=== PATIENT | male | born 1995 | race African-American/Black ===

== ENCOUNTER 2020-11-01 11:57 | Observation (INO) | payer SELFPAY ==
[2020-11-01] MEDS ORDERED: NORMAL SALINE 1000 ML 1,000 ML IV ONE ×3 (13:23→20:12)
--- NOTE | 2020-11-01 13:24 | ER Document Report ---
ED Medical Screen (RME) - General Stated Complaint: DIZZINESS Time Seen by Provider: 11/01/20 13:22 Notes: Patient presents complaining of generalized body cramps dizziness and blurred vision. Patient states he used methamphetamine and fentanyl for the first time 2 days ago. Patient without any chest discomfort. I have greeted and performed a rapid initial assessment of this patient. A comprehensive ED assessment and evaluation of the patient, analysis of test results and completion of the medical decision making process will be conducted by additional ED providers. - Related Data Allergies/Adverse Reactions: No Known Allergies Allergy (Verified 11/01/20 13:20) Physical Exam - Vital signs Vitals: Temp Pulse Resp BP Pulse Ox 98.2 F 81 16 118/70 100 11/01/20 12:23 11/01/20 12:23 11/01/20 12:23 11/01/20 12:23 11/01/20 12:23 - General General appearance: Appears well, Alert - Cardiovascular Rhythm: Regular Heart sounds: S1 appreciated, S2 appreciated Murmur: No Course - Vital Signs Vital signs: Temp Pulse Resp BP Pulse Ox 98.2 F 81 16 118/70 100 11/01/20 12:23 11/01/20 12:23 11/01/20 12:23 11/01/20 12:23 11/01/20 12:23
[2020-11-01 14:04] LABS: APPEARANCE,URINE CLEAR; BILIRUBIN,URINE NEGATIVE (NEGATIVE); COLOR,URINE YELLOW; GLUCOSE, URINE NEGATIVE (NEGATIVE); KETONES,URINE 20 mg/dL (NEGATIVE); LEUKOCYTE ESTERASE,URINE SMALL (NEGATIVE); NITRITE,URINE NEGATIVE (NEGATIVE); PROTEIN,URINE NEGATIVE (NEGATIVE); URINE SPECIFIC GRAVITY 1.006
[2020-11-01 14:17] LABS: URINE BARBITURATES SCREEN NEGATIVE; URINE BENZODIAZEPINES SCREEN NEGATIVE; URINE COCAINE SCREEN NEGATIVE; URINE METHADONE SCREEN NEGATIVE; URINE PHENCYCLIDINE SCREEN NEGATIVE
[2020-11-01 14:29] LABS: URINE MARIJUANA (THC) SCREEN UNCONFIRMED POSITIVE
[2020-11-01 14:36] LABS: ABSOLUTE EOSINOPHILS # (AUTO) 0.1 10^3/uL (0.0-0.6); ABSOLUTE LYMPHOCYTES (AUTO) 1.3 10^3/uL (0.5-4.7); ABSOLUTE MONOCYTES (AUTO) 0.7 10^3/uL (0.1-1.4); ABSOLUTE NEUT (AUTO) 6.8 10^3/uL (1.7-8.2); BASOPHILS % (AUTO) 0.5 % (0-2); EOSINOPHILS % (AUTO) 0.9 % (0-6); HEMATOCRIT 44.7 % (37.9-51.0); LYMPHOCYTES % (AUTO) 14.4 % (13-45); MEAN CORPUSCULAR HEMOGLOBIN 30.3 pg (27.0-33.4); MEAN CORPUSCULAR HGB CONC 33.5 g/dL (32.0-36.0); MEAN CORPUSCULAR VOLUME 90 fl (80-97); MONOCYTES % (AUTO) 7.8 % (3-13); PLATELET COUNT 189 10^3/uL (150-450); RED BLOOD COUNT 4.94 10^6/uL (4.35-5.55); RED CELL DISTRIBUTION WIDTH 12.9 % (11.5-14.0); SEGMENTED NEUTROPHILS % (AUTO) 76.4 % (42-78); TOTAL CELLS COUNTED % (AUTO) 100 %; WHITE BLOOD COUNT 8.9 10^3/uL (4.0-10.5)
--- NOTE | 2020-11-01 16:02 | ER Document Report ---
ED General - General Chief Complaint: Drug Abuse Stated Complaint: DIZZINESS Time Seen by Provider: 11/01/20 13:22 - HPI Notes: Patient is a 25-year-old male who presents to the emergency department for evaluation. He experimented with methamphetamine and fentanyl for the first time 2 days ago. He injected methamphetamine, snorted the fentanyl. He states that since then he has been feeling "weird." He is been very dizzy. He feels almost as if he is sick. He complains of pain in his anterior thighs. He denies any fevers but he states that his "temperature has felt elevated." No chills. No nausea or vomiting, although he does have a diminished appetite. Mild increase in loose bowel movements. He is still urinating. No hematuria, urinary frequency, dysuria to speak of. He denies the regular use of any other drugs. - Related Data Allergies/Adverse Reactions: No Known Allergies Allergy (Verified 11/01/20 13:20) Home Medications: None Past Medical History - General Information source: Patient - Social History Smoking Status: Current Some Day Smoker Frequency of alcohol use: None Drug Abuse: Marijuana, Methamphetamine, Prescription drugs Family History: Reviewed & Not Pertinent, Other - Chronic kidney disease - Medical History Medical History: Negative Surgical Hx: Negative Review of Systems - Review of Systems Constitutional: See HPI EENT: No symptoms reported Cardiovascular: No symptoms reported Respiratory: No symptoms reported Gastrointestinal: See HPI Genitourinary: No symptoms reported Musculoskeletal: See HPI Skin: No symptoms reported Neurological/Psychological: No symptoms reported Physical Exam - Vital signs Vitals: Temp Pulse Resp BP Pulse Ox 98.2 F 81 16 118/70 100 11/01/20 12:23 11/01/20 12:23 11/01/20 12:23 11/01/20 12:23 11/01/20 12:23 - Notes Notes: Vital signs reviewed, please refer to chart. Head is normocephalic, atraumatic. Pupils equal round, reactive to light. Neck is supple without meningismus. Heart is regular rate and rhythm. Lungs are clear to auscultation bilaterally. Abdomen is soft, nontender, normoactive bowel sounds throughout. Extremities without cyanosis, clubbing. Posterior calves are nontender. He does have some tenderness over the quadriceps muscles bilaterally. Peripheral pulses are equal. Skin is warm and dry. Patient is awake, alert, neurological exam is nonfocal. He is calm, cooperative with examiner, exhibits good hygiene. Does not appear to be reacting to any sort of internal stimuli. Course - Re-evaluation Re-evalutation: 11/01/20 16:01 Patient presents to the emergency department for evaluation. He was initially seen through triage. Laboratory investigations have been ordered. I am concerned about the possibility of rhabdomyolysis in this patient who has been abusing amphetamines. Labs show large blood in his urine without a large amount of red blood cells on microscopic examination. He does have some white blood cells there, this was sent for culture. I have ordered IV fluids. Awaiting chemistries. He is currently stable, we will continue to monitor. 11/01/20 20:08 Patient CPK is markedly elevated. His creatinine is still normal. We will continue IV fluids, awaiting medicine consultation. 11/01/20 21:47 Dr. Briones will come down and evaluate the patient. - Vital Signs Vital signs: Temp Pulse Resp BP Pulse Ox 98.2 F 60 16 136/68 H 98 11/02/20 01:54 11/02/20 01:54 11/02/20 01:54 11/02/20 01:54 11/02/20 01:54 - Laboratory Results Result Diagrams: 11/01/20 14:08 11/01/20 18:45 Laboratory Results Interpreted: 11/01/20 11/01/20 13:36 18:45 Sodium 136.1 L Glucose 73 L Total Bilirubin 2.2 H AST 816 H ALT 201 H Creatine Kinase 11610 H Urine Ketones 20 H Urine Blood LARGE H Urine Urobilinogen 2.0 H Ur Leukocyte Esterase SMALL H Critical Laboratory Results Reviewed: No Critical Results - Radiology Results Critical Radiology Results Reviewed: No Critical Results Discharge - Discharge Clinical Impression: Rhabdomyolysis Qualifiers: Encounter type: initial encounter Condition: Stable Disposition: ADMITTED OBSERVATION Admitting Provider: [facility] Unit Admitted: Medical Floor
[2020-11-01 19:33] LABS: ALBUMIN 3.9 g/dL (3.5-5.0); ALKALINE PHOSPHATASE 42 U/L (38-126); ANION GAP 7 (5-19); BILIRUBIN,TOTAL 2.2 mg/dL (0.2-1.3); BLOOD UREA NITROGEN 14 mg/dL (7-20); CALCIUM 9.1 mg/dL (8.4-10.2); CARBON DIOXIDE 29 mmol/L (22-30); CHLORIDE 100 mmol/L (98-107); GLUCOSE 73 mg/dL (75-110); POTASSIUM 3.7 mmol/L (3.6-5.0); TOTAL PROTEIN 6.9 g/dL (6.3-8.2)
[2020-11-01 20:07] LABS: ASPARTATE AMINO TRANSFERASE 816 U/L (17-59)
[2020-11-01 20:08] LABS: CREATINE KINASE 28961 U/L (55-170)
[2020-11-01] MEDS ORDERED: NORMAL SALINE 1000 ML 1,000 ML IV PRN (22:04)
[2020-11-01] MEDS ORDERED: ONDANSETRON HCL INJ/PF 4 MG/2 ML SDV IV PRN (22:04)
[2020-11-01] MEDS ORDERED: ACETAMINOPHEN 325 MG TABLET PO ONE (22:08)
[2020-11-01] MEDS ORDERED: FAMOTIDINE 20 MG TABLET PO ONE (22:45)
--- NOTE | 2020-11-01 23:14 | PDOC H&P ---
History of Present Illness Admission Date/PCP: NO LOCALMD Patient complains of: Bilateral thigh pain History of Present Illness: CARRI WHITMAN is a 25 year old male with no significant past medical history who presents to the ED reporting a 2 days duration of progressively worsening bilateral thigh pain. He describes the pain as cramping, 10/10 intensity and ag gravated by movement. Patient also states that he has been feeling drained, dehydrated and this morning before presentation he felt like he was almost going to pass out. He states that he used methamphetamine and fentanyl 2 days back before the symptoms started. The methamphetamine was injected into his right arm by his friend and he snorted fentanyl. He denies any fever, thigh or leg swelling, numbness or tingling in his extremities, chest pain, shortness of breath, palpitation, nausea, vomiting, abdominal pain, diarrhea or any change in his urinary habit. Social History Information Source: Patient Smoking Status: Current Some Day Smoker Drugs: Other - Patient reports first-time use of methamphetamine injection and fentanyl - Advance Directive Resuscitation Status: Full Code Family History Family History: Other - Chronic kidney disease Parental Family History Reviewed: Yes Children Family History Reviewed: Yes Sibling(s) Family History Reviewed.: Yes Medication/Allergy Allergies/Adverse Reactions: No Known Allergies Allergy (Verified 11/01/20 13:20) Review of Systems Constitutional: ABSENT: chills, fever(s), headache(s), weight gain, weight loss Eyes: ABSENT: visual disturbances Nose, Mouth, and Throat: ABSENT: headache(s), mouth pain, sore throat Cardiovascular: ABSENT: chest pain, dyspnea on exertion, edema, orthropnea, palpitations Respiratory: ABSENT: cough, hemoptysis Gastrointestinal: ABSENT: abdominal pain, constipation, diarrhea, hematemesis, hematochezia, nausea, vomiting Genitourinary: ABSENT: dysuria, hematuria Musculoskeletal: PRESENT: as per HPI Integumentary: ABSENT: rash, wounds Neurological: ABSENT: abnormal gait, abnormal speech, confusion, dizziness, focal weakness, syncope Psychiatric: ABSENT: anxiety, depression, homidical ideation, suicidal ideation Endocrine: ABSENT: cold intolerance, heat intolerance, polydipsia, polyuria Hematologic/Lymphatic: ABSENT: easy bleeding, easy bruising Physical Exam Vital Signs: Temp Pulse Resp BP Pulse Ox 97.8 F 66 16 126/63 H 100 11/01/20 18:46 11/01/20 18:46 11/01/20 18:46 11/01/20 18:46 11/01/20 18:46 Intake & Output 10/31/20 11/01/20 11/02/20 06:59 06:59 06:59 Intake Total 1999 Balance 1999 Additional comments: GENERAL APPEARANCE: Alert and oriented x3, in no acute distress HEENT: Normocephalic and atraumatic. Dry oral mucosa NECK: Supple. No lymphadenopathy or tenderness. No JVD CHEST: Symmetric. Nontender to palpation. LUNGS: Clear with good air entry bilaterally. No wheezing or crackles HEART: Regular rate and rhythm with normal S1 and S2. No murmurs, gallops, or rubs. ABDOMEN: Flat, soft, active bowel sounds, no direct or rebound tenderness. No organomegaly detected. EXTREMITIES: No cyanosis, clubbing, or edema. MUSCULOSKELETAL: No deformity, atrophy or swelling noted PSYCHIATRIC: Recent and remote memory is intact. Appropriate mood and affect. SKIN: Warm, dry, and well perfused. No lesions or rashes are noted. NEUROLOGIC: No focal sensory or motor deficits are noted. Results Laboratory Results: 11/01/20 14:08 11/01/20 18:45 11/01/20 11/01/20 11/01/20 13:36 14:08 14:08 WBC 8.9 RBC 4.94 Hgb 15.0 Hct 44.7 MCV 90 MCH 30.3 MCHC 33.5 RDW 12.9 Plt Count 189 Seg Neutrophils % 76.4 Sodium Cancelled Potassium Cancelled Chloride Cancelled Carbon Dioxide Cancelled Anion Gap Cancelled BUN Cancelled Creatinine Cancelled Est GFR ( Amer) Cancelled Est GFR (Non-Af Amer) Cancelled Glucose Cancelled Calcium Cancelled Magnesium Cancelled Total Bilirubin Cancelled AST Cancelled Alkaline Phosphatase Cancelled Total Protein Cancelled Albumin Cancelled Urine Color YELLOW Urine Appearance CLEAR Urine pH 6.0 Ur Specific [place] 1.006 Urine Protein NEGATIVE Urine Glucose (UA) NEGATIVE Urine Ketones 20 H Urine Blood LARGE H Urine Nitrite NEGATIVE Ur Leukocyte Esterase SMALL H Urine WBC (Auto) 24 Urine RBC (Auto) 1 11/01/20 18:45 WBC RBC Hgb Hct MCV MCH MCHC RDW Plt Count Seg Neutrophils % Sodium 136.1 L Potassium 3.7 Chloride 100 Carbon Dioxide 29 Anion Gap 7 BUN 14 Creatinine 0.82 Est GFR ( Amer) > 60 Est GFR (Non-Af Amer) Glucose 73 L Calcium 9.1 Magnesium 1.9 Total Bilirubin 2.2 H AST 816 H Alkaline Phosphatase 42 Total Protein 6.9 Albumin 3.9 Urine Color Urine Appearance Urine pH Ur Specific [place] Urine Protein Urine Glucose (UA) Urine Ketones Urine Blood Urine Nitrite Ur Leukocyte Esterase Urine WBC (Auto) Urine RBC (Auto) 11/01/20 11/01/20 14:08 18:45 Creatine Kinase Cancelled 62678 H Assessment and Plan - Diagnosis (1) Rhabdomyolysis Qualifiers: Encounter type: initial encounter Is this a current diagnosis for this admission?: Yes Plan: Patient presents with severe bilateral thigh pain after IV methamphetamine use Currently he is alert and oriented and hemodynamically stable Currently no sign of compartment syndrome CK level was elevated at 28,961 Kidney function within the normal limit Was given 2 L of normal saline bolus at the ED Continued him on normal saline at a rate of 250 mill per hour Closely monitor I&O's Will continue closely monitoring kidney function test, uric acid level and electrolytes (2) Elevated liver enzymes Is this a current diagnosis for this admission?: Yes Plan: Liver enzymes including bilirubin were elevated AST/ALT/alk phos >> 816/201/42 with a bilirubin of 2.2 Likely to be due to rhabdomyolysis Obtain hepatitis panel in the morning continue IV hydration as stated above - Time Time Spent with patient: 35 or more minutes Total Critical Time (Minutes): 40 Medications reviewed and adjusted accordingly: Yes Anticipated Discharge Disposition: Home, Self Care Anticipated Discharge Timeframe: within 72 hours - Inpatient Certification Based on my medical assessment, after consideration of the patient's comorbidities, presenting symptoms, or acuity I expect that the services needed warrant INPATIENT care.: Yes I certify that my determination is in accordance with my understanding of Medicare's requirements for reasonable and necessary INPATIENT services [42 CFR 412.3e].: Yes Medical Necessity: Need Close Monitoring Due to Risk of Patient Decompensation, Need For IV Fluids, Risk of Complication if Not Cared For in Hospital Post Hospital Care: D/C or Transfer Summary
[2020-11-02] MEDS ORDERED: OXYCODONE-ACETAMINOPHEN 5-325 MG TABLET PO ONE (02:15)
[2020-11-02 06:09] LABS: ALBUMIN 2.7 g/dL (3.5-5.0); ALKALINE PHOSPHATASE 32 U/L (38-126); ASPARTATE AMINO TRANSFERASE 647 U/L (17-59); BILIRUBIN,TOTAL 1.4 mg/dL (0.2-1.3); BLOOD UREA NITROGEN 11 mg/dL (7-20); CALCIUM 8.1 mg/dL (8.4-10.2); GLUCOSE 106 mg/dL (75-110); POTASSIUM 3.7 mmol/L (3.6-5.0); TOTAL PROTEIN 5.3 g/dL (6.3-8.2); URIC ACID 4.7 mg/dL (3.5-8.5)
[2020-11-02 06:14] LABS: CARBON DIOXIDE 27 mmol/L (22-30); CHLORIDE 109 mmol/L (98-107)
[2020-11-02 06:44] LABS: ANION GAP 3 (5-19); CREATINE KINASE 20845 U/L (55-170)
[2020-11-02 08:24] VITALS: BP 110/48
[2020-11-02] MEDS ORDERED: ENOXAPARIN SODIUM INJ 40 MG/0.4 ML DISP.SYRIN SUBCUT SCH (10:00)
[2020-11-02] MEDS ORDERED: FAMOTIDINE 20 MG TABLET PO SCH (10:00)
--- NOTE | 2020-11-02 11:41 | Left Against Medical Advice ---
Against Medical Advice Admission Date/Time: 11/01/20 22:55 Primary Care Provider: ZULY FAUSTLA Date of Patient Emigration: 11/02/20 - Diagnosis: (1) Elevated liver enzymes Is this a current diagnosis for this admission?: Yes (2) Rhabdomyolysis Is this a current diagnosis for this admission?: Yes - Summary: Summary: Please see Admission and Progress Notes as well. CARRI WHITMAN is a 25 M, who LEFT AGAINST MEDICAL ADVICE. The Patient was admitted on 11/01/20 22:55. Patient was admitted for rhabdomyolysis with a CK of 28,961 and normal renal function after reportedly utilizing methamphetamine recreationally. Patient was admitted to the medical floor and treated with generous IV fluids. He was provided antiemetics and analgesics as needed. Follow-up chemistry this morning revealed downward trend in LFTs, CK down to 20,845, and preserved renal function. At the time of my assessment, the patient was calm and cooperative and had no complaints. However, approximately 45 minutes later, nursing informed me that the patient had elected to leave AGAINST MEDICAL ADVICE.
== END 2020-11-02 11:30 | disposition left against medical advice (07) ==
LOC: ER 11:57 → EH 22:55 → 4S 11-02 01:30
PROVIDERS: ADMIT Student in an Organized Health Care Education/Training Program; ATTEND Registered Nurse
DX: R74.8 Abnormal levels of other serum enzymes (principal); M62.82 Rhabdomyolysis; M79.652 Pain in left thigh; M79.651 Pain in right thigh; F17.200 Nicotine dependence, unspecified, uncomplicated; F15.10 Other stimulant abuse, uncomplicated; F11.10 Opioid abuse, uncomplicated; F19.10 Other psychoactive substance abuse, uncomplicated; F12.10 Cannabis abuse, uncomplicated; R42 Dizziness and giddiness; H53.8 Other visual disturbances; R31.9 Hematuria, unspecified; Z84.1 Family history of disorders of kidney and ureter
CPT/HCPCS: 99285; 96360; 96361; 36415 ×2; 87086; 82550 ×2; 83735 ×2; 84550; 85025; 80053 ×2; 81001; 80307; G0378 ×3; J2405; J7030 ×2